=== PATIENT | female | born 1990 | race American Indian/Alaskan Native ===

== ENCOUNTER 2019-03-28 18:40 | Emergency (ER) | payer OTHER ==
[2019-03-28 19:03] VITALS: BMI 43.0
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
[2019-03-28 19:41] VITALS: TEMP 98.2; O2SAT 100
[2019-03-29 02:32] VITALS: BP 126/70; PULSE 82; RESP 17
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
== END 2019-03-28 20:26 | disposition home or self-care (01) ==
LOC: ED 18:40 → MERGE 18:40 → ED 20:26
DX: S09.90XA Unspecified injury of head, initial encounter (principal); V49.9XXA Car occupant (driver) (passenger) injured in unspecified traffic accident, initial encounter; Y92.410 Unspecified street and highway as the place of occurrence of the external cause